=== PATIENT | female | born 1995 | race Caucasian/White ===

== ENCOUNTER 2016-11-15 20:23 | Emergency (ER) | payer OTHER, BC ==
[~2016-11-15 20:23] MED LIST: TYLENOL W/CODEI1 TAB PO
[2016-11-15] MEDS ORDERED: QUASENSE 0.15-1 EACH PO (21:58)
[2016-11-15] MEDS ORDERED: ERYTHROMYCIN1 GM OP (22:34)
== END 2016-11-15 22:50 ==
LOC: EDMED 20:23
DX: T54.91XA Toxic effect of unspecified corrosive substance, accidental (unintentional), initial encounter (principal); H10.211 Acute toxic conjunctivitis, right eye; Y99.8 Other external cause status